=== PATIENT | female | born 1995 | race American Indian/Alaskan Native ===

== ENCOUNTER 2018-02-07 07:43 | Day surgery (SDC) | payer BC ==
--- NOTE | 2018-02-03 09:44 | Anesthesia Consultation ---
Anesthesia Consult and Med Hx Date of service: 02/03/18 - Airway Anesthetic Teeth Evaluation: Good ROM Head & Neck: Adequate Mental/Hyoid Distance: Adequate Mallampati Class: Class I Intubation Access Assessment: Good - Pulmonary Exam CTA: Yes - Cardiac Exam Cardiac Exam: RRR - Pre-Operative Health Status ASA Pre-Surgery Classification: ASA1 Proposed Anesthetic Plan: General - Central Nervous System Hx Back Pain: Yes Hx Psychiatric Problems: No - Hematic Hx Anemia: Yes - Other Systems Hx Alcohol Use: No Hx Substance Use: No Hx Cancer: No
[2018-02-03 09:45] LABS: Basophils % (Auto) 0.7 % (0.0-1.8); Eosinophils # (Auto) 0.3 K/mm3 (0.0-0.4); Hemoglobin 11.7 gm/dl (10.1-14.3); Lymphocytes # (Auto) 2.4 K/mm3 (1.2-5.4); Lymphocytes % (Auto) 41.7 % (13.4-35.0); Mean Corpuscular HGB Conc 32 % (30-34); Mean Corpuscular Volume 80 fl (79-97); Monocytes # (Auto) 0.5 K/mm3 (0.0-0.8); Monocytes % (Auto) 8.2 % (0.0-7.3); Platelet Count 318 K/mm3 (140-440); Red Cell Distribution Width 15.5 % (13.2-15.2)
[2018-02-03 09:47] LABS: Mean Corpuscular Hemoglobin 26 pg (28-32)
[~2018-02-07 07:43] MED LIST: LACTATED RINGERS 1,000 ML IV SCH; VERSED IV NR
--- NOTE | 2018-02-07 09:05 | Anesthesia Day of Surgery ---
Anesthesia Day of Surgery - Day of Surgery Patient Examined: Yes Patient H&P Reviewed: Yes Patient is NPO: Yes
[2018-02-07] MEDS ORDERED: DILAUDID IV PRN (09:06)
[2018-02-07] MEDS ORDERED: DIPRIVAN 10 MG/ML IV ONE (09:32)
[2018-02-07] MEDS ORDERED: SUBLIMAZE ONE (09:32)
[2018-02-07] MEDS ORDERED: XYLOCAINE MPF 2% ONE (09:33)
[2018-02-07] MEDS ORDERED: ZOFRAN ONE (09:33)
[2018-02-07] MEDS ORDERED: PEPCID IV NR (10:00)
[2018-02-07] MEDS ORDERED: TRANSDERM-SCOP TD NR (10:00)
[2018-02-07] MEDS ORDERED: ANCEF/STERILE WATER 2 GM/20 ML IV NR (11:00)
--- NOTE | 2018-02-07 12:27 | Operative Report ---
PREOPERATIVE DIAGNOSIS: Macromastia. POSTOPERATIVE DIAGNOSIS: Macromastia. PROCEDURE PERFORMED: Bilateral reduction mammoplasty. SURGEON: Dr. Georges Kim. WAREHOUSE SPECIALIST: ____, MADHU. FINDINGS: 580 gm removed from the right breast, 480 gm removed from the left breast. DESCRIPTION OF PROCEDURE: The patient was brought to the operating room and placed on the table in supine position. Following administration of general anesthesia, bilateral breasts were prepped with Betadine solution, draped in usual sterile manner. A #10 blade scalpel was used to make a circumareolar skin incision followed by de-epithelization of an inferior dermal pedicle. Modified Mims pattern skin markings were incised with scalpel, deepened through subcutaneous fat. Skin flaps were raised in standard manner as was fashioning of an inferior central mound pedicle. Breast tissue was resected and sent to Pathology as specimen. Hemostasis controlled using electrocautery. Closure was performed over 10-mm Kaushal drain using interrupted running subcuticular 2-0 Monocryl sutures. Mastisol, Steri-Strips, and sterile dressings applied. The patient tolerated procedure well and returned to recovery room in stable condition. JOB# [id number] FTW/NTS
[2018-02-07] MEDS ORDERED: DILAUDID ONE ×2 (13:27→13:52)
[2018-02-07] MEDS ORDERED: TORADOL IV ONE (13:51)
[2018-02-07] MEDS ORDERED: TORADOL ONE (13:51)
[2018-02-07] MEDS: DILAUDID IV PRN ×2 (13:53→14:22)
--- NOTE | 2018-02-07 14:08 | Post Anesthesia Evaluation ---
- Post Anesthesia Evaluation Patient Participated: Yes Airway Patent: Yes Stable Respiratory Function: Yes Nausea/Vomiting: No Temp > 96.8F: Yes Pain Manageable: Yes Adequeate Hydration: Yes Anesthesia Complications: No
[2018-02-07] MEDS ORDERED: ZOFRAN IV ONE (16:14)
[2018-02-07 17:58] VITALS: BP 134/86
[2018-02-07] MEDS ORDERED: PHENERGAN PO PRN (18:01)
--- NOTE | 2018-02-07 18:22 | XRay Report ---
FINAL REPORT PROCEDURE: XR CHEST 1V AP TECHNIQUE: A portable AP chest radiograph was obtained at 02/07/2018 21:21 (T) . CPT 83479 HISTORY: Rule out aspiration pneumonia. COMPARISON: No prior studies are available for comparison. FINDINGS: Heart: Normal. Mediastinum/Vessels: Normal. Lungs/Pleural space: Normal. Bony thorax: No acute osseous abnormality. Life support devices: None. IMPRESSION: No radiographic evidence of acute cardiopulmonary disease.
== END 2018-02-07 18:48 | disposition home or self-care (01) ==
LOC: OR 07:43
PROVIDERS: ATTEND Plastic Surgery
DX: N62 Hypertrophy of breast (principal)
CPT/HCPCS: 19318; 36415; 71045; 84703; 85025; 88305; J0690; J1170; J1885; J2250; J2405; J2704; J3010; J7120; Q0169